=== PATIENT | male | born 1975 | race Caucasian/White ===

== ENCOUNTER 2019-06-22 20:20 | Emergency (ER) | payer OTHER ==
[2019-06-22 20:26] VITALS: BP 131/82
[2019-06-22 22:42] LABS: ABS Lymphocytes 1.5 10^3/ul (1.0-4.8); ABS Monocytes 0.8 10^3/ul (0-0.8); ABS Neutrophils 6.6 10^3/ul (1.5-7.7); Eosinophil % 0.5 %; Hematocrit 46 % (42-52); Hemoglobin 15.9 g/dL (14.0-18.0); Lymphocyte % 16.8 %; Mean Corpuscular HGB Conc 35 g/dL (31-36); Mean Corpuscular Hemoglobin 33 pg (27-31); Mean Corpuscular Volume 94 fL (80-94); Mean Platelet Volume 9.2 fL (7.4-10.4); Platelet Count 256 10^3/uL (150-450); Red Blood Count 4.87 10^6 /uL (4.18-5.48); Red Cell Distribution Width 13 % (10-15); White Blood Count 8.9 10^3/uL (3.5-10.8)
[2019-06-22 23:02] LABS: Albumin 4.1 g/dL (3.2-5.2); Albumin/Globulin Ratio 1.6 (1-3); BUN/Creatinine Ratio 13.4 (8-20); C Reactive Protein 15.06 mg/L (<8.01); Calcium 8.9 mg/dL (8.6-10.3); EGFR African American 75.6 (>60); EGFR Non-African American 62.5 (>60); Globulin 2.5 g/dL (2-4); Total Bilirubin 0.3 mg/dL (0.2-1.0); Total Protein 6.6 g/dL (6.4-8.9)
== END 2019-06-22 21:45 | disposition left against medical advice (07) ==
LOC: ED 20:20
DX: Z53.21 Procedure and treatment not carried out due to patient leaving prior to being seen by health care provider (principal); M54.5 Low back pain
CPT/HCPCS: 36415; 80053; 83690; 85025; 86140; 99281

== ENCOUNTER 2020-01-09 19:45 | Inpatient (IN) ==
[2020-01-09] MEDS ORDERED: Ondansetron 4 mg VIAL 2 MG/ML 2 ml VIAL IV ONE (20:57)
[2020-01-09] MEDS: NS 0.9% 1000 ml BAG 2,000 ML IV ONE ×2 (21:11→21:12)
[2020-01-09 21:39] LABS: ABS Lymphocytes 2.3 10^3/ul (1.0-4.8); ABS Neutrophils 24.2 10^3/ul (1.5-7.7); ABS Nucleated RBC 0.1 10^3/ul; Eosinophil % 0.1 %; Hematocrit 53 % (42-52); Hemoglobin 18.2 g/dL (14.0-18.0); Lymphocyte % 8.1 %; Mean Corpuscular HGB Conc 35 g/dL (31-36); Mean Corpuscular Hemoglobin 31 pg (27-31); Mean Corpuscular Volume 91 fL (80-94); Nucleated Red Blood Cells % 0.4; Red Blood Count 5.81 10^6 /uL (4.18-5.48); Red Cell Distribution Width 13 % (10-15); White Blood Count 28.6 10^3/uL (3.5-10.8)
[2020-01-09 21:51] LABS: Albumin 5.8 g/dL (3.2-5.2); Albumin/Globulin Ratio 1.7 (1-3); BUN/Creatinine Ratio 9.5 (8-20); C Reactive Protein 2.38 mg/L (<8.01); EGFR African American 23.4 (>60); EGFR Non-African American 19.4 (>60); Globulin 3.5 g/dL (2-4); Potassium 3.2 mmol/L (3.5-5.0); Total Bilirubin 0.8 mg/dL (0.2-1.0); Total Protein 9.3 g/dL (6.4-8.9)
[2020-01-09] MEDS ORDERED: Metoclopramide 5 MG/ML VIAL (10 mg) IV ONE (21:59)
[2020-01-09 22:05] LABS: Mean Platelet Volume 9.6 fL (7.4-10.4); Platelet Count 464 10^3/uL (150-450)
[2020-01-09] MEDS ORDERED: NS 0.9% 1000 ml BAG 1,000 ML IV ONE (23:01)
[2020-01-09 23:50] LABS: Erythrocyte Sed Rate 0 mm/Hr (0-14)
[2020-01-10] MEDS: NS 0.9% 1000 ml BAG 1,000 ML IV SCH ×2 (01:22→22:06)
[2020-01-10] MEDS: KCL 20 MEQ/100 ML IVPREMIX 20 MEQ/100 ML BAG IV SCH ×3 (01:41→13:23)
[2020-01-10] MEDS: Ondansetron 4 mg VIAL 2 MG/ML 2 ml VIAL IV PRN ×3 (01:51→18:48)
[2020-01-10 02:01] LABS: Magnesium 2.2 mg/dL (1.9-2.7)
[2020-01-10 02:15] LABS: Urine Appearance Clear; Urine Color Yellow; Urine Specific Gravity 1.025 (1.010-1.030)
[2020-01-10 02:16] LABS: * N (Negative); Urine Bilirubin Negative (Negative); Urine Blood N (Negative); Urine Glucose N (Negative); Urine Ketones Negative (Negative); Urine Nitrite N (Negative); Urine Protein 2+(100 mg/dL) (Negative); Urine Urobilinogen N (Negative)
[2020-01-10 02:27] LABS: Urine Bacteria 2+ (Absent); Urine Red Blood Cell Absent (Absent); Urine White Blood Cell 1+(6-10/hpf) (Absent)
[2020-01-10 02:28] LABS: Urine Squamous Epithelial Cell Present (Absent)
[2020-01-10 02:37] LABS: Urine Benzodiazepine Screen None Detected (None Detect); Urine Cannabinoids Screen Presumptive Positive (None Detect); Urine Opiates Screen Presumptive Positive (None Detect)
[2020-01-10 02:44] LABS: Urine Creatinine Concentration 369.53 mg/dL
[2020-01-10 06:57] LABS: Hematocrit 42 % (42-52); Hemoglobin 14.4 g/dL (14.0-18.0); Mean Corpuscular HGB Conc 34 g/dL (31-36); Mean Corpuscular Hemoglobin 31 pg (27-31); Mean Corpuscular Volume 92 fL (80-94); Mean Platelet Volume 9.9 fL (7.4-10.4); Platelet Count 344 10^3/uL (150-450); Red Blood Count 4.57 10^6 /uL (4.18-5.48); Red Cell Distribution Width 13 % (10-15); White Blood Count 23.1 10^3/uL (3.5-10.8)
[2020-01-10 07:10] LABS: ABS Lymphocytes 2.1 10^3/ul (1.0-4.8); ABS Monocytes 1.6 10^3/ul (0-0.8); ABS Neutrophils 19.3 10^3/ul (1.5-7.7); Lymphocyte % 9.2 %
[2020-01-10 07:24] LABS: BUN/Creatinine Ratio 15.8 (8-20); EGFR African American 42.3 (>60); Potassium 3.2 mmol/L (3.5-5.0)
[2020-01-10] MEDS ORDERED: Potassium Chlor 20 meq TAB.ER PO ONE (12:08)
[2020-01-11] MEDS: NS 0.9% 1000 ml BAG 1,000 ML IV SCH ×3 (04:01→23:06)
[2020-01-11 06:10] LABS: ABS Basophils 0.1 10^3/ul (0-0.2); ABS Eosinophils 0.1 10^3/ul (0-0.6); ABS Lymphocytes 2.7 10^3/ul (1.0-4.8); ABS Monocytes 1.3 10^3/ul (0-0.8); ABS Neutrophils 10.2 10^3/ul (1.5-7.7); Eosinophil % 0.4 %; Hematocrit 40 % (42-52); Lymphocyte % 18.8 %; Mean Corpuscular HGB Conc 35 g/dL (31-36); Mean Corpuscular Hemoglobin 32 pg (27-31); Mean Corpuscular Volume 92 fL (80-94); Mean Platelet Volume 9.3 fL (7.4-10.4); Platelet Count 277 10^3/uL (150-450); Red Blood Count 4.35 10^6 /uL (4.18-5.48); Red Cell Distribution Width 13 % (10-15); White Blood Count 14.2 10^3/uL (3.5-10.8)
[2020-01-11 06:21] LABS: BUN/Creatinine Ratio 16.3 (8-20); Calcium 8.3 mg/dL (8.6-10.3); EGFR Non-African American 97.5 (>60); Potassium 3.6 mmol/L (3.5-5.0)
[2020-01-11] MEDS: Ondansetron 4 mg VIAL 2 MG/ML 2 ml VIAL IV PRN (08:31)
[2020-01-11] MEDS ORDERED: Midazolam 2 mg/2 ml VIAL 1 mg/ml 2 ml VIAL (2 mg) ONE (14:48)
[2020-01-11] MEDS ORDERED: fentaNYL 100 mcg/2 ml 50 MCG/ML VIAL ONE (14:49)
[2020-01-11] MEDS ORDERED: Glycopyrrolate IV 0.2 MG/ML 1 ML VIAL ONE (15:21)
[2020-01-11] MEDS ORDERED: Lidocaine 2% PF 5 ML VIAL ONE (15:21)
[2020-01-12 05:23] LABS: ABS Basophils 0.1 10^3/ul (0-0.2); ABS Eosinophils 0.1 10^3/ul (0-0.6); ABS Lymphocytes 2.8 10^3/ul (1.0-4.8); ABS Monocytes 1.1 10^3/ul (0-0.8); ABS Neutrophils 9.5 10^3/ul (1.5-7.7); Eosinophil % 0.8 %; Hematocrit 39 % (42-52); Hemoglobin 13.7 g/dL (14.0-18.0); Lymphocyte % 20.6 %; Mean Corpuscular HGB Conc 35 g/dL (31-36); Mean Corpuscular Hemoglobin 32 pg (27-31); Mean Corpuscular Volume 91 fL (80-94); Mean Platelet Volume 9.8 fL (7.4-10.4); Nucleated Red Blood Cells % 0.1; Platelet Count 266 10^3/uL (150-450); Red Blood Count 4.26 10^6 /uL (4.18-5.48); Red Cell Distribution Width 13 % (10-15); White Blood Count 13.6 10^3/uL (3.5-10.8)
[2020-01-12 05:39] LABS: BUN/Creatinine Ratio 16.5 (8-20); Calcium 8.5 mg/dL (8.6-10.3); EGFR African American 110.6 (>60); EGFR Non-African American 91.4 (>60); Potassium 3.5 mmol/L (3.5-5.0)
[2020-01-12] MEDS: NS 0.9% 1000 ml BAG 1,000 ML IV SCH (08:54)
[2020-01-12] MEDS ORDERED: Cholestyramine Resin 4 GM POWDER PO SCH (10:00)
[2020-01-12] MEDS ORDERED: Iohexol 300 (CONTRAST) 10 ML SDV IV ONE (10:19)
[2020-01-12 11:49] VITALS: BP 140/93
[2020-01-12 14:07] LABS: HIV 4th Generation Nonreactive (Nonreactive)
== END 2020-01-12 13:30 | disposition home or self-care (01) | DRG 469 ==
LOC: ED 19:45 → MEDTELE 19:45 → OBSVTOIN 22:15 → MEDTELE 23:19
PROVIDERS: ADMIT Internal Medicine; ATTEND Internal Medicine

== ENCOUNTER 2020-01-28 21:13 | Inpatient (IN) ==
[2020-01-28] MEDS ORDERED: Ondansetron 4 mg VIAL 2 MG/ML 2 ml VIAL IV ONE (21:30)
[2020-01-28] MEDS ORDERED: Pantoprazole VIAL 40 MG VIAL IV ONE (21:30)
[2020-01-28] MEDS ORDERED: NS 0.9% 1000 ml BAG 2,000 ML IV ONE (21:30)
[2020-01-28 22:17] LABS: ABS Basophils 0.1 10^3/ul (0-0.2); ABS Eosinophils 0.1 10^3/ul (0-0.6); ABS Lymphocytes 2.6 10^3/ul (1.0-4.8); ABS Monocytes 1.5 10^3/ul (0-0.8); ABS Neutrophils 19.1 10^3/ul (1.5-7.7); Eosinophil % 0.2 %; Hematocrit 41 % (42-52); Hemoglobin 13.9 g/dL (14.0-18.0); Lymphocyte % 11.1 %; Mean Corpuscular HGB Conc 34 g/dL (31-36); Mean Corpuscular Hemoglobin 32 pg (27-31); Mean Corpuscular Volume 92 fL (80-94); Mean Platelet Volume 9.3 fL (7.4-10.4); Platelet Count 433 10^3/uL (150-450); Red Cell Distribution Width 13 % (10-15); White Blood Count 23.3 10^3/uL (3.5-10.8)
[2020-01-28 22:32] LABS: Activated Partial Thrombo Time 27.1 seconds (26.0-38.0); INR 1.12 (0.82-1.09)
[2020-01-28 22:33] LABS: Albumin 4.2 g/dL (3.2-5.2); Albumin/Globulin Ratio 1.5 (1-3); BUN/Creatinine Ratio 24.4 (8-20); Calcium 8.8 mg/dL (8.6-10.3); EGFR African American 42.3 (>60); Globulin 2.8 g/dL (2-4); Potassium 3.7 mmol/L (3.5-5.0); Total Bilirubin 0.4 mg/dL (0.2-1.0)
[2020-01-29] MEDS ORDERED: Ondansetron 4 mg VIAL 2 MG/ML 2 ml VIAL IV PRN (02:59)
[2020-01-29] MEDS ORDERED: NS 0.9% 1000 ml BAG 1,000 ML IV SCH ×2 (03:00→05:49)
[2020-01-29] MEDS: Pantoprazole 80 mg in NS BAG 80 MG/250 ML BAG IV SCH ×2 (03:39→17:38)
[2020-01-29 05:13] LABS: Urine Appearance Cloudy; Urine Bilirubin Negative (Negative); Urine Blood Negative (Negative); Urine Color Yellow; Urine Glucose Negative (Negative); Urine Ketones Negative (Negative); Urine Nitrite Negative (Negative); Urine Protein Negative (Negative); Urine Specific Gravity 1.021 (1.010-1.030); Urine Urobilinogen Negative (Negative)
[2020-01-29 06:33] LABS: TSH Ultra Thyroid Stim Horm 1.16 mcIU/mL (0.34-5.60)
[2020-01-29 06:55] LABS: C Reactive Protein 6.47 mg/L (<8.01)
[2020-01-29 09:10] LABS: ABS Basophils 0.1 10^3/ul (0-0.2); ABS Eosinophils 0.1 10^3/ul (0-0.6); ABS Lymphocytes 3.1 10^3/ul (1.0-4.8); ABS Monocytes 0.7 10^3/ul (0-0.8); ABS Neutrophils 7.2 10^3/ul (1.5-7.7); Eosinophil % 1.2 %; Hematocrit 33 % (42-52); Hemoglobin 11.1 g/dL (14.0-18.0); Lymphocyte % 27.3 %; Mean Corpuscular HGB Conc 34 g/dL (31-36); Mean Corpuscular Hemoglobin 31 pg (27-31); Mean Corpuscular Volume 92 fL (80-94); Mean Platelet Volume 8.6 fL (7.4-10.4); Platelet Count 319 10^3/uL (150-450); Red Blood Count 3.55 10^6 /uL (4.18-5.48); Red Cell Distribution Width 13 % (10-15); White Blood Count 11.2 10^3/uL (3.5-10.8)
[2020-01-30 05:53] LABS: ABS Basophils 0.1 10^3/ul (0-0.2); ABS Eosinophils 0.1 10^3/ul (0-0.6); ABS Lymphocytes 2.8 10^3/ul (1.0-4.8); ABS Monocytes 0.4 10^3/ul (0-0.8); ABS Neutrophils 2.8 10^3/ul (1.5-7.7); Eosinophil % 1.8 %; Hematocrit 27 % (42-52); Hemoglobin 9.4 g/dL (14.0-18.0); Lymphocyte % 45.1 %; Mean Corpuscular HGB Conc 35 g/dL (31-36); Mean Corpuscular Hemoglobin 32 pg (27-31); Mean Corpuscular Volume 92 fL (80-94); Mean Platelet Volume 8.9 fL (7.4-10.4); Platelet Count 256 10^3/uL (150-450); Red Blood Count 2.91 10^6 /uL (4.18-5.48); Red Cell Distribution Width 13 % (10-15); White Blood Count 6.2 10^3/uL (3.5-10.8)
[2020-01-30 06:05] LABS: CO2 Carbon Dioxide 31 mmol/L (22-32); Calcium 7.8 mg/dL (8.6-10.3); Chloride 104 mmol/L (101-111); Sodium 135 mmol/L (135-145)
[2020-01-30 06:10] LABS: BUN/Creatinine Ratio 23.4 (8-20); Blood Urea Nitrogen 22 mg/dL (6-24); EGFR African American 106.5 (>60); Glucose 89 mg/dL (70-100)
[2020-01-30] MEDS ORDERED: NS 0.9% IVPB ONE (13:00)
[2020-01-30] MEDS ORDERED: ERYTHROMYCIN LACTOBIONATE IVPB ONE (13:00)
[2020-01-30] MEDS ORDERED: Midazolam 5 mg/5 ml VIAL 1 mg/ml 5 ml VIAL (5 mg) ONE (14:10)
[2020-01-30] MEDS ORDERED: Lidocaine 2% PF 5 ML VIAL ONE (14:11)
[2020-01-30] MEDS ORDERED: Succinylcholine 200 mg VIAL 20 mg/ml 10 ml VIAL (200 mg) ONE (14:15)
[2020-01-30] MEDS ORDERED: Rocuronium 50 mg VIAL 10 mg/ml 5 ml VIAL (50 mg) ONE (14:15)
[2020-01-30] MEDS ORDERED: Propofol 10 MG/ML 20 ML BTL ONE (14:15)
[2020-01-30] MEDS ORDERED: EPHEDrine (Pressors) 50 MG/ML VIAL ONE (14:20)
[2020-01-30] MEDS ORDERED: Sterile Water for Inj 10 ML ONE (14:20)
[2020-01-30] MEDS ORDERED: Phenylephrine 40 mcg/mL 10mL (400mcg) SYRINGE ONE (14:21)
[2020-01-30] MEDS ORDERED: Naloxone 0.4 mg VIAL 0.4 mg/ml 1 ml VIAL IV PRN (15:01)
[2020-01-30] MEDS ORDERED: Ondansetron 4 mg VIAL 2 MG/ML 2 ml VIAL IV PRN (15:01)
[2020-01-30] MEDS ORDERED: diPHENhydraMINE IV 50 MG/ML 1 ml VIAL (BENADRYL) IV PRN (15:01)
[2020-01-30 20:46] VITALS: BP 110/69
[2020-02-02] MEDS ORDERED: Scopolamine PATCH Remove NOTE PATCH OFF ONE (15:01)
== END 2020-01-30 18:50 | disposition home or self-care (01) | DRG 243 ==
LOC: ED 21:13 → MED 01-29 02:40
PROVIDERS: ADMIT Student in an Organized Health Care Education/Training Program; ATTEND Internal Medicine
PROC: O.GIEGD (2020-01-30 14:10)